=== PATIENT | female | born 1945 | race Caucasian/White ===

== ENCOUNTER 2016-10-16 09:46 | Inpatient (IN) | payer OTHER, MEDICARE ==
[2016-10-16] MEDS ORDERED: NS 1,000 ML IV ONE (10:04)
--- NOTE | 2016-10-16 10:08 | EDPHY ---
H & P Stated Complaint: Swelling L side of face > 2wks after dental procedure HPI/ROS: CHIEF COMPLAINT: Left facial swelling and pain HISTORY OF PRESENT ILLNESS: dental procedure on September 28 on the left lower molar for a temporary crown. Since then she has had increasing swelling on the left side of the face. Mild at 1st but now severe. It has steadily worsened without any improvement. Moderately tender 1st but severely tender last night. So tender that she took a pain medication from 8 years ago her previous injury this morning that has dulled the pain somewhat. Worse with any kind of palpation, movement, talking or attempted intake by mouth. Too painful to actually eat. No improvement with anything she has tried other than the mild pain relief as listed above. No fever or chills. No nausea or vomiting. No chest pain or shortness of breath. No abdominal pain. No urinary complaints. No changes of the skin, nails. No trauma. No other associated complaints or modifying factors. REVIEW OF SYSTEMS: Ten systems reviewed and are negative unless otherwise noted in the HPI EXAMINATION General Appearance: Alert, no distress Head: normocephalic, atraumatic, skin changes as noted below. Eyes: Pupils equal and round, no conjunctival pallor or injection ENT, Mouth: Mucous membranes moist . There is significant edema and moderate erythema over the left side of the face/parotid gland. It moderately tender to palpation. Indurated but not fluctuant. Neck: Significant edema of the lower face and upper neck. There is no edema below the mandible. No erythema below the mandible. There are palpable cervical lymphadenopathy Respiratory: Lungs are clear to auscultation. No wheezing, rhonchi or crackles. Cardiovascular: Regular rate and rhythm . No murmur. Gastrointestinal: Abdomen is soft and nontender Back: non-tender, no bony abnormalities Neurological: A&O, nonfocal, Strength symmetric. Skin: Skin changes as noted ENT section. Skin is otherwise grossly intact without any lesions. No purpura or petechiae. No abnormal appearance of nails or palm of his hands Extremities: Nontender, no pedal edema Psychiatric: Mood and affect normal DIFFERENTIAL DIAGNOSES: Including but not limited to Parotid abscess, parotitis, facial cellulitis, facial abscess, post surgical complication MDM: 10:00 a.m. significant left-sided facial swelling and edema that is concerning for a parotid abscess or parotitis. there is significant edema on examination with some erythema. She is hemodynamically stable with vital signs that were completely normal. She is in no acute distress. Labs and CT scan have been ordered. 11:[address] scan reveals a significant left-sided abscess. The official radiology report is pending, though he will take oral maxillofacial surgery for their assistance. We have administered clindamycin and vancomycin and she has remained NPO here in the emergency department. 11:01 a.m. case discussed with Dr. Jones in Radiology. He informed me that there is a significant, 8 cm abscess. This does track to the parotid, the commissioner of relocation services space , parapharyngeal space and up to the skull base. I informed him that we have already called maxillofacial surgery and we will also consult Ear Nose and Throat to discuss the best plan of surgical action for the patient. She remains awake and alert in no acute distress. Her airway is patent. She is hemodynamically stable. I did verify that her last p.o. intake was 8:20 a.m. when she had a smoothie for breakfast 11:30 a.m. I have discussed the case with Dr. Cardona, and she will evaluate the patient. She will put her on the surgery schedule and will evaluate the CT scan. She was requesting that we admit to the hospitalist and keep her here in the ER until she can come evaluate the patient. hospitalist has been paged. 11:39 a.m. discussed the case with the hospitalist, and she will be admitted to Dr. Hernández for inpatient care. 12:00pm Patient has been evaluated in the emergency department by maxillofacial surgery, as they were consulted by ENT. The plan is for surgical intervention and she has been admitted to the hospitalist for ongoing care. The patient is hemodynamically stable, she has begun her preoperative workup. SUPERVISION: Patient was evaluated in conjunction with the supervising physician. Please see their note for details. Source: Patient Exam Limitations: No limitations - Personal History Current Tetanus Diphtheria and Acellular Pertussis (TDAP): Unsure - Medical/Surgical History Other PMH: neg - Social History Smoking Status: Never smoked Constitutional: Initial Vital Signs Temperature (C) 98.1 F 10/16/16 09:47 Heart Rate 67 10/16/16 09:47 Respiratory Rate 16 10/16/16 09:47 Blood Pressure 111/76 10/16/16 09:47 O2 Sat (%) 97 10/16/16 09:47 O2 Delivery Mode Room Air Allergies/Adverse Reactions: Penicillins Allergy (Mild, Verified 10/16/16 09:51) Rash Home Medications: Medication Instructions Recorded NK [No Known Home Meds] 10/16/16 Medical Decision Making - Data Points Laboratory Results: Laboratory Results 10/16/16 10:06 10/16/16 10:06 10/16/16 10/16/16 10:06 10:04 WBC 15.48 H 10^3/uL (3.80-9.50) RBC 3.98 L 10^6/uL (4.18-5.33) Hgb 13.0 g/dL (12.6-16.3) POC Hgb 13.3 gm/dL (12.3-15.9) Hct 38.0 % (38.0-47.0) POC Hct 39 % (35.5-47.5) MCV 95.5 fL (81.5-99.8) MCH 32.7 pg (27.9-34.1) MCHC 34.2 g/dL (32.4-36.7) RDW 12.1 % (11.5-15.2) Plt Count 397 10^3/uL (150-400) MPV 8.4 L fL (8.7-11.7) Neut % (Auto) 89.2 H % (39.3-74.2) Lymph % (Auto) 2.5 L % (15.0-45.0) [place] % (Auto) 7.2 % (4.5-13.0) Eos % (Auto) 0.1 L % (0.6-7.6) Baso % (Auto) 0.3 % (0.3-1.7) Nucleat RBC Rel Count 0.0 % (0.0-0.2) Absolute Neuts (auto) 13.81 H 10^3/uL (1.70-6.50) Absolute Lymphs (auto) 0.39 L 10^3/uL (1.00-3.00) Absolute Monos (auto) 1.12 H 10^3/uL (0.30-0.80) Absolute Eos (auto) 0.01 L 10^3/uL (0.03-0.40) Absolute Basos (auto) 0.04 10^3/uL (0.02-0.10) Absolute Nucleated RBC 0.00 10^3/uL (0-0.01) Immature Gran % 0.7 % (0.0-1.1) Immature Gran # 0.11 H 10^3/uL (0.00-0.10) ESR 43 H MM/HR (0-30) POC Sodium 134 mEq/L (134-144) Sodium 135 mEq/L (134-144) POC Potassium 3.5 mEq/L (3.3-5.0) Potassium 3.9 mEq/L (3.5-5.2) POC Chloride 94 L mEq/L (96-108) Chloride 97 mEq/L (97-110) Carbon Dioxide 27 mEq/l (22-31) Anion Gap 11 mEq/L (8-16) POC BUN 3 L mg/dL (7-23) BUN 6 L mg/dL (7-23) Creatinine 0.6 mg/dL (0.6-1.0) POC Creatinine 0.6 mg/dL (0.6-1.2) Estimated GFR > 60 Glucose 103 H mg/dL (70-100) POC Glucose 110 H mg/dL (70-100) Calcium 8.7 mg/dL (8.5-10.4) C-Reactive Protein 208.7 H mg/L (<10.0) Medications Given: Discontinued Medications Sodium Chloride (Ns) 1,000 mls @ 0 mls/hr IV ONCE ONE PRN Reason: Wide Open Stop: 10/16/16 10:05 Last Admin: 10/16/16 10:18 Dose: 1,000 mls Clindamycin Phosphate/Dextrose (Cleocin 600 Mg (Premix)) 50 mls @ 100 mls/hr IV EDNOW ONE PRN Reason: Protocol Stop: 10/16/16 11:06 Last Admin: 10/16/16 10:49 Dose: 50 mls Point of Care Test Results: 10/16/16 10:04 POC Sodium 134 POC Potassium 3.5 POC Chloride 94 L POC BUN 3 L POC Creatinine 0.6 POC Glucose 110 H Departure - Departure Disposition: [facility] Acute Clinical Impression: Facial cellulitis, Facial abscess Condition: Good
[2016-10-16 10:16] LABS: % IMMATURE GRANULYOCYTES 0.7 % (0.0-1.1); ABSOLUTE IMMATURE GRANULOCYTES 0.11 10^3/uL (0.00-0.10); ADD DIFF? NO; ADD MORPH? NO; ADD SCAN? NO; ATYPICAL LYMPHOCYTE FLAG 10 (0-99); FRAGMENT RBC FLAG 0 (0-99); LEFT SHIFT FLG 10 (0-99); LIPEMIA HEMOLYSIS FLAG 90 (0-99); MEAN CELL HEMOGLOBIN 32.7 pg (27.9-34.1); MEAN CELL HEMOGLOBIN CONCENTR. 34.2 g/dL (32.4-36.7); MEAN CELL VOLUME 95.5 fL (81.5-99.8); MEAN PLATELET VOLUME 8.4 fL (8.7-11.7); PLATELET CLUMPS FLAG 0 (0-99); PLATELET COUNT 397 10^3/uL (150-400); RED BLOOD CELL COUNT 3.98 10^6/uL (4.18-5.33); RED CELL DISTRIBUTION WIDTH 12.1 % (11.5-15.2)
[2016-10-16] MEDS ORDERED: IOPAMIDOL (ISOVUE-300) 100 ML BTL IV ONE (10:18)
[2016-10-16 10:30] LABS: SEDIMENTATION RATE 43 MM/HR (0-30)
[2016-10-16] MEDS ORDERED: CLINDAMYCIN 600 MG/DEXTROSE 50 ML IV ONE (10:37)
[2016-10-16 10:45] LABS: ANION GAP 11 mEq/L (8-16); CALCIUM 8.7 mg/dL (8.5-10.4); CARBON DIOXIDE 27 mEq/l (22-31); CHLORIDE 97 mEq/L (97-110); CREATININE 0.6 mg/dL (0.6-1.0); GLOMERULAR FILTRATION RATE > 60; GLUCOSE 103 mg/dL (70-100); POTASSIUM 3.9 mEq/L (3.5-5.2); SODIUM 135 mEq/L (134-144)
[2016-10-16] MEDS ORDERED: VANCOMYCIN HCL/NORMAL SALINE 250 ML IV ONE (10:55)
[2016-10-16 11:06] LABS: C-REACTIVE PROTEIN 208.7 mg/L (<10.0)
--- NOTE | 2016-10-16 11:07 | CPEKG ---
Heart Rate: 70 RR Interval: 857 P-R Interval: 131 QRSD Interval: 94 QT Interval: 412 QTC Interval: 445 P [place]: 0 QRS [place]: 39 T Wave [place]: 39 EKG Severity - NORMAL ECG - EKG Impression: SINUS RHYTHM Electronically Signed By: Tl Glasgow 16-Oct-2016 14:31:23
--- NOTE | 2016-10-16 11:30 | CT ---
CT Scan of the Neck With Contrast Clinical Indications: Prominent left neck swelling in a 70-year-old female who is status post 2 weeks dental procedure. Technique: During machine power IV injection of 90 mL of Isovue-300, multidetector helical CT imaging was performed from the skull base to the upper thoracic inlet. Axial images are obtained at 3 mm int ervals and reformatted at 1.5 mm thickness. The examination is reviewed on the workstation at multipl e window/level settings. Sagittal and coronal reformations are performed. Dose reduction techniques were utilized for this examination. Findings: There is extensive abscess formation in the left neck. Complex, multiloculated fluid extend s from the skull base caudally for 9 cm. The abscess measures 8.5 cm transverse. The soft tissue mass involves the reliability technicians space as well as left parapharyngeal space. The abscess engulfs the mandible and involves the left parotid. Mass effect from the abscess compresses the left internal jugular vei n. The left carotid is mildly displaced. No osseous erosive changes are seen. No significant opacific ation of the paranasal sinuses is noted. There is also enlargement as well as heterogeneous attenuati on of the left submandibular gland. The medial extent of the abscess results in mass effect on the ai rway. Impression: 1. 9 x 8.5 cm multiloculated abscess in the left neck extending cephalad to the skull base with an ep icenter around the left mandibular ramus. 2. See above report for abnormal findings associated with the large neck abscess. A preliminary report was called to Benjamin Shell at 1115 hours in the Emergency Department.
--- NOTE | 2016-10-16 11:40 | DX ---
PA and Lateral Chest History: Preoperative evaluation in a 70-year-old female with a left neck abscess. No previous studie s available for comparison. Findings: The heart and mediastinum are normal. Pulmonary vascularity is normal. The lungs are clear. There is no pleural fluid. There is elevation of the left hemidiaphragm associated with gaseous dist ention of the stomach. A pneumothorax is not identified. Impression: Chest negative for acute abnormality.
[2016-10-16] MEDS ORDERED: DEXAMETHASONE 10 MG/ML VIAL IVP ONE (11:58)
[2016-10-16] MEDS ORDERED: fentaNYL 100 MCG/2 ML INJ ONE (13:34)
[2016-10-16] MEDS ORDERED: PROPOFOL/EMULSION 500 MG/50 ML BOTTLE IV ONE (13:35)
[2016-10-16] MEDS ORDERED: LIDO/EPI 1% **Not for Epidural 20 ML MDV ONE (13:37)
[2016-10-16] MEDS ORDERED: MIDAZOLAM 2 MG/2 ML VIAL ONE (14:10)
--- NOTE | 2016-10-16 15:55 | POSTOPPROG ---
Post Op Note Date of Operation: 10/16/16 Surgeon: Juliana Cardona Anesthesiologist: kelsey melendez md Anesthesia: GET(General Endotracheal) Pre-op Diagnosis: L dental abscess extending into rougher helper space/PPF/neck Post-op Diagnosis: same Procedure: I&D L neck abscess via external and intraoral approach Findings: 100 cc purulence fluid expressed, cultures taken Inf/Abcess present in the surg proc area at time of surgery?: Yes Depth: Deep Incisional (Fascial) EBL: Minimal Complications: none apparent Drains: [place] (2 enmanuel L neck)
[2016-10-16] MEDS ORDERED: ACETAMINOPHEN 325 MG TAB PO PRN (16:38)
[2016-10-16] MEDS ORDERED: HYDROmorphONE/DILAUDID 1 MG/ML SYR IVP PRN (16:38)
[2016-10-16] MEDS ORDERED: ONDANSETRON DISINTEGRATING 4 MG TAB PO PRN (16:38)
[2016-10-16] MEDS ORDERED: ONDANSETRON 4 MG/2 ML VIAL IVP PRN (16:38)
[2016-10-16] MEDS ORDERED: NS 1,000 ML IV SCH (16:45)
--- NOTE | 2016-10-16 16:53 | GCON ---
[f rep st] CONSULTATION CHIEF COMPLAINT: Neck abscess. HISTORY OF PRESENT ILLNESS: This is a very pleasant 70-year-old woman, who presented to the ER with a 2-week history of progressive left neck and face swelling and pain. She had a dental procedure done on September 28 for a left lower molar and got a temporary crown. Since then, starting about 5 days after that procedure, she has had increasing swelling on the left side of the face and around her jaw. This was minimal at first, but now it has gotten severe and has steadily worsened. It became acutely more tender last night and increasing tension. She denies any dysphagia, odynophagia, or shortness of breath. She does have difficulty opening her mouth. She does state that she has been back to her dentist a couple times and nothing was really done until yesterday, she was given clindamycin. She has been having significant pain and has not been able to eat very much secondary to worsening pain and trismus. Denies any fever or chills. No nausea or vomiting. She denies chest pain or shortness of breath. She has no other trauma and no other significant past medical history. REVIEW OF SYSTEMS: Negative, unless otherwise noted in the HPI. PAST MEDICAL HISTORY: Negative for any significant past medical history. MEDICATIONS: She is on no current medications. PHYSICAL EXAM: GENERAL: She is awake, alert, in no apparent distress. HEENT: She does have marked swelling over the left side of the cheek, face and jaw. I am not able to feel the angle of her mandible. She does have fluctuance overlying where this would be, as well as a lot of induration, as well as redness this extends down over the left neck and into the upper chest. Ears are normal with TMs that are intact and middle ear effusion. Nose shows some dry secretions, but otherwise clear. Oral cavity and oropharynx show overall good dentition. She does have trismus with about a 2-3 cm interincisor distance. She has significant swelling of the buccal region intraorally, as well as some kind of purulent fluid and secretions around this area. It is difficult to see her oropharynx secondary to her trismus. She has no floor of mouth swelling, and tongue is mobile and midline. NECK: Shows induration over the left side of the jaw extending into the upper part of the neck but otherwise, I do not find any other masses or lesions. RESPIRATORY: She is breathing comfortably, stridor or wheezing, and sats are in the upper 90s. CARDIOVASCULAR: Regular rate and rhythm. NEUROLOGIC: Cranial nerves 2-12 are grossly intact. PSYCHIATRIC: She has a normal mood and affect. IMAGING: Shows a significant 8 x 9 cm abscess, seemingly starting around the angle of the mandible and extending into the line up examiner space, parapharyngeal space and up to the skull base. LABS: White count is 15, H and H are normal, and platelets are 397. ASSESSMENT AND PLAN: This is a patient with a left-sided mandibular dental abscess that looks like it has extended into the line up examiner space, as well as the pterygoid palatine fossa and then into the neck, the surrounding the parotid. It also extends up to the skull base. I discussed with her that she needs a fairly acute incision and drainage. I also talked to her about potential need for awake tracheostomy if Anesthesia feels that it is unsafe to try to intubate her. I did explain that we will do an intraoral and an external incision. She understands that there is a small risk of nerve injury, vessel injury, or continued infection and need for return to the OR at a later date. I talked to the radiologist, as well as the Infectious Disease physicians, who will be admitting her and following as well and otherwise, have alerted OR. /[id number]/MODL MTDD
--- NOTE | 2016-10-16 17:02 | GOP ---
[f rep st] OPERATIVE REPORT DATE OF OPERATION: 10/16/2016 SURGEON: Juliana Cardona MD ANESTHESIA: General. PREOPERATIVE DIAGNOSIS: Left likely dental abscess source extending into the clerical stock inspector space, parap haryngeal space and neck. POSTOPERATIVE DIAGNOSIS: Left likely dental abscess source extending into the clerical stock inspector space, para pharyngeal space and neck. PROCEDURE PERFORMED: Incision and drainage of left facial and dental abscess via an external and int raoral incision. FINDINGS: Patient was found significant loculations and about 100 cc of pus was expressed out of thi s abscess cavity. It was irrigated out copiously with normal saline intraorally and extraorally, and no significant purulence was found. DESCRIPTION OF PROCEDURE: The patient was first seen in the preoperative area, where informed consen t was obtained. She was then brought back to the operating room, where Anesthesia sedated and intuba rosetta her via the GlideScope. At this point, she was then prepped and draped in a sterile fashion usin g Betadine on the neck and face, and then Peridex within the oral cavity. She did have significant trismus, and we initially started our procedure by making an incision just a bout 2 fingerbreadths below the angle of the mandible. This was the area of maximal fluctuance. Abo ut a 2 to 2.5 cm incision was made using a 15 blade through the skin, subcutaneous tissues after abou t 4 cc of 1% lidocaine with 1:100,000 epinephrine was injected into this region. I then gently sprea d with a tonsil clamp through the multiple layers of tissue until the capsule of the abscess cavity w as found. This was significantly thick. The electrocautery was used to just gently thin this area o ut and the tonsil was used to break through this, and then we had immediate expression of significant purulent fluid mixed with blood. Two cultures were taken and sent off for aerobic and anaerobic cul ture. The tonsil was used to probe around the down to the angle of the mandible and then up along the super ior aspect of the mandible. We also probed more inferiorly, as well as laterally and got significant amounts of purulence from all these regions. This was irrigated out copiously with normal saline an d cleared out. At this point, I then turned my attention to the intraoral area. Peridex was used again to irrigate this out, and then her teeth were cleaned using the Peridex and a toothbrush. Once this was done, th is was suctioned clear and then I palpated in the buccal cavity, as well as the palate. She had sign ificant swelling of the buccal region, as well as this extended into the soft palate to the midline. I was able to palpate these areas and express significant amounts of more purulence through the exte rnal incision, indicating that these were contiguous. She did still have some fluctuance and concern for continued abscess in these regions and so I then placed a [place] retractor, as well as use a swe etheart retractor to retract the tongue and the ET tube, and then a small incision was used with the electrocautery in the retromolar trigone area just over the anterior surface of the mandible. Once t his was done, I then used the probe, as well as my finger to break up any loculations and express any more purulence. A significant amount of saline was used to irrigate this out copiously and then once I was confident that all the purulence had been expressed and all the loculations were clear, the wo und was irrigated out copiously with saline, cleared, and then our intraoral incision was left open. I then turned back to the extraoral incision. Again, irrigated out this copiously with normal saline , cleared the cavity, and then 2 quarter-inch Penroses were placed within the cavity and sutured to t he skin using a 3-0 nylon. At this point, the area was cleaned, and then 4x4s and gauze and tape wer e used to cover the drains. At this point, the patient was turned back over to Anesthesia, where she was awoken and extubated, an d taken to PACU in stable condition. There were no complications and she tolerated the procedure. COMPLICATIONS: None apparent. /[id number]/MODL
--- NOTE | 2016-10-16 17:18 | GHP ---
[f rep st] HISTORY AND PHYSICAL DATE OF ADMISSION: 10/16/2016 CHIEF COMPLAINT: Left facial swelling and pain. HISTORY OF PRESENT ILLNESS: The patient is a 70-year-old female who has no significant past medical history, who presented to the emergency room with left facial swelling and pain. She had a dental procedure on September 28 on the left lower molar area. Since then, she has had increased swelling. During my interview, she said the pain was never too severe, but became severely tender last night. She was unable to eat. She came to the ER for further evaluation. She had a CT scan performed. This showed a 9 x 8.5 cm multiloculated abscess in the left neck area, extending cephalad to the skull base, with an epicenter around the left mandibular ramus. She subsequently went to the OR with Dr. Cardona, and had an I and D of the left neck abscess via external and intraoral approach. At that time, 100 cc of purulent fluid was expressed. Cultures were taken. I evaluated the patient after the procedure. She was quite sedate, but was able to answer my questions. She denies any fever or chills. She denies any type of chest pain or shortness of breath. Her main complaint that brought her in was the left facial swelling and pain. PAST MEDICAL HISTORY: None. PAST SURGICAL HISTORY: Appendectomy. FAMILY HISTORY: Her parents are . Her mom had dementia. Her father of complications of old age. SOCIAL HISTORY: She has been for 23 years. She has no children. She does not smoke. She rarely drinks alcohol. ALLERGIES: Penicillin. MEDICATIONS: Home medications none. REVIEW OF SYSTEMS: A 10-point review of systems was performed and was negative other than pertinent positives in the HPI and past medical history. PHYSICAL EXAMINATION: GENERAL: The patient is a 70-year-old woman who appears to be in overall good health. VITAL SIGNS: Blood pressure in PACU was 110/69, heart rate was in the low 90s. O2 sats on 2 L were 93%, temperature was 36.8 Celsius. EYES: Pupils were equal and reactive. EOMs are intact. ENT: Normal ears, hearing intact. NECK: Trachea is midline. She has significant swelling to the left neck area and along the left jaw area. She has [address] with bloody drainage coming through the dressings. CARDIOVASCULAR: She has a regular rate and rhythm. No murmurs, rubs, or gallops noted, 2+ pedal pulses. CHEST: Lungs with normal respiratory effort. Clear without wheezes, rales, or rhonchi. She has a dry cough. ABDOMEN: Soft, nontender. SKIN: No rashes. MUSCULOSKELETAL: Not evaluated. She is moving both upper and lower extremities equally. PSYCHIATRIC: She is very drowsy, but awakens easily and is oriented. Normal mood and affect. Normal judgment, insight, and normal memory. DATA REVIEW: Laboratory data shows a sodium of 135, potassium 3.9, chloride of 97, CO2 of 27, BUN 6, creatinine 0.6, glucose of 103, calcium 8.7. C reactive 208.7. A CBC shows a white blood cell count of 15.48, RBC of 3.98, platelet count 397. Sedimentation rate is 43. EKG was performed, which I evaluated and interpreted myself, which shows a sinus rhythm. Neck CT shows a 9 x 8.5 cm multiloculated abscess in the left neck, extending cephalad to the skull base with an epicenter around the left mandibular ramus. ASSESSMENT/PLAN: 1. Left facial/dental abscess extending into the heel painter space. She is status post I and D of the left neck. I have spoken with Dr. Jones, and the plan is to place her on ertapenem. She also has a Inman in place to help with this drainage. Blood cultures are currently pending as well as Gram stains and fungal cultures are pending. 2. Leukocytosis. This is due to the infection. Will recheck labs in the morning. She does not appear to be septic at this time. 3. Hyperglycemia, likely stress-induced. Recheck labs in the morning. 4. Deep venous thrombosis prophylaxis. Will initiate low molecular weight heparin in the a.m. 5. Length of stay. She will likely require greater than 2 midnight stay for IV antibiotics. /[id number]/MODL MTDD
[2016-10-16] MEDS: ERTAPENEM 1 GM in NS 100 ML IV SCH (17:30)
[2016-10-16] MEDS: IBUPROFEN 200 MG TAB PO PRN (20:17)
--- NOTE | 2016-10-16 21:44 | GCON ---
[f rep st] CONSULTATION INFECTION DISEASE CONSULTATION DATE OF CONSULTATION: 10/16/2016 REFERRING PHYSICIAN: Rosalba Nelson NP REASON FOR CONSULTATION: Left mandibular abscess. HISTORY OF PRESENT ILLNESS: Patient is a 70-year-old female without significant past medical history who underwent temporary crown placement on a left lower molar approximately 3 weeks ago. Approximat catina 2 weeks ago, she developed increased swelling over the left mandibular region with some associate d tenderness. She had associated trismus. She notes she has primarily been taking in liquid intake rather than eating usual foods. She has not had fever or chills. She has not been receiving any ant ibiotic therapy. She has been undergoing regular follow up with her dentist. Over the last several days, she developed erythema over the area which spread to the anterior chest. The area of erythema was warm and firm over the jaw line. She has been taking ibuprofen which has not relieved her sympto ms. No nausea, vomiting, or diarrhea. No urinary symptoms. She does have some intermittent cough. No shortness of breath. Based on those findings, she was seen in the emergency room earlier today a nd noted to have a large left-sided mandibular abscess. CT scan shows a 9 x 8.5 cm multiloculated ab scess in the left neck/jaw with its central area around the left mandible. There is compression of t he left internal jugular vein, and there is some mass effect on her airway. She notes that her voice has been more hoarse, but she has not noted any stridor. The patient was given vancomycin and clind amycin empirically in the emergency department as she has prior penicillin allergy. Given the above findings, I am now asked to assist with her ongoing management. PAST MEDICAL HISTORY: Traumatic pelvic fracture. PAST SURGICAL HISTORY: Breast biopsy. MEDICATIONS: Prior to admission, as needed ibuprofen. ALLERGIES: Penicillin associated with rash over the chest; no hives were anaphylactic symptoms. SOCIAL HISTORY: The patient does not smoke. She drinks 1 glass of wine daily. No drug use. No pet s at home. FAMILY HISTORY: Noncontributory. REVIEW OF SYSTEMS: Outside that noted in the HPI, the remainder of 10 system review is unremarkable. PHYSICAL EXAMINATION: VITAL SIGNS: Temperature 36.7, heart rate 77, respiratory rate 16, blood pres sure 121/87, oxygen saturation 96% on room air. GENERAL: The patient is well-nourished, well-develo ped, in mild distress due to left mandibular abscess. She appears nontoxic. HEENT: There are no sc leral icterus, conjunctival injection, conjunctiva petechiae. The left jaw is extremely swollen with induration and fluctuance present with overlying erythema and warmth; no crepitus present; erythema extends from the jaw/face through the left side of the neck and onto the anterior chest. There is th ick white material along the lower portion of the mandibular region intraorally; trismus is present; there is no nasal tenderness or drainage. There is no tenderness over the frontal sinuses bilaterall y. NECK: See HEENT exam; there is erythema anteriorly with tenderness to palpation. CHEST: Clear to auscultation bilaterally without adventitious sounds. Respiratory is normal. Erythema extends on the left chest wall to approximately the bra line with warmth present. CARDIOVASCULAR: Regular rat e and rhythm without murmurs, gallops, rubs. ABDOMEN: Soft, nontender, nondistended. There is no p alpable organomegaly. Bowel sounds are present. MUSCULOSKELETAL: There is no cyanosis, clubbing, o r edema. SKIN: See HEENT, neck and chest exam; there are no stigmata of endocarditis. Skin is warm , dry to touch. LYMPHATICS: Difficult to assess for cervical adenopathy based on anterior neck tend erness. No supraclavicular nodes palpable. NEUROLOGIC: The patient is alert and interacts appropri ately with the examiner. Cranial nerves 2-12 are grossly intact. Sensation is grossly intact. Musc le tone and bulk are normal. LABORATORY DATA: White blood cell count 15.5, hematocrit 38.0, platelets 397, neutrophils 89%. Seru m creatinine is 0.6. C-reactive protein 209. CT scan of the neck as outlined in the History of Pres ent Illness; this was reviewed and interpreted by me today. Chest x-ray shows no abnormalities. IMPRESSION: Left mandibular/neck abscess, status post dental work: Clinical findings are consistent with a large multiloculated abscess of odontogenic etiology. Oral nestor likely etiology for above f indings. Incision and drainage will be required for resolution of above. Plans for incision and alber inage are in place by Ear, Nose, and Throat surgery. RECOMMENDATIONS: 1. Ertapenem 1 g IV q.24 hours. 2. Agree with plans for incision and drainage. 3. Blood cultures x2 sets. 4. Intraoperative cultures to assist with antibiotic therapy. Thank you for this consultation. We will continue to follow the patient with you. /[id number]/MODL
[2016-10-17 06:15] LABS: % IMMATURE GRANULYOCYTES 0.6 % (0.0-1.1); ABSOLUTE IMMATURE GRANULOCYTES 0.07 10^3/uL (0.00-0.10); ADD DIFF? NO; ADD MORPH? NO; ADD SCAN? NO; ATYPICAL LYMPHOCYTE FLAG 10 (0-99); FRAGMENT RBC FLAG 0 (0-99); HEMATOCRIT 30.8 % (38.0-47.0); HEMOGLOBIN 10.3 g/dL (12.6-16.3); LEFT SHIFT FLG 0 (0-99); LIPEMIA HEMOLYSIS FLAG 80 (0-99); MEAN CELL HEMOGLOBIN CONCENTR. 33.4 g/dL (32.4-36.7); MEAN CELL VOLUME 98.7 fL (81.5-99.8); MEAN PLATELET VOLUME 8.7 fL (8.7-11.7); PLATELET CLUMPS FLAG 0 (0-99); PLATELET COUNT 359 10^3/uL (150-400); RED BLOOD CELL COUNT 3.12 10^6/uL (4.18-5.33); RED CELL DISTRIBUTION WIDTH 12.5 % (11.5-15.2)
[2016-10-17 06:38] LABS: ALANINE AMINOTRANSFERASE 37 IU/L (9-52); ALBUMIN 2.4 g/dL (3.5-5.0); ALKALINE PHOSPHATASE 116 IU/L (38-126); ANION GAP 11 mEq/L (8-16); ASPARTATE AMINOTRANSFERASE 20 IU/L (14-46); BILIRUBIN,TOTAL 0.4 mg/dL (0.1-1.4); CALCIUM 7.8 mg/dL (8.5-10.4); CARBON DIOXIDE 22 mEq/l (22-31); CHLORIDE 106 mEq/L (97-110); CREATININE 0.5 mg/dL (0.6-1.0); GLOMERULAR FILTRATION RATE > 60; GLUCOSE 85 mg/dL (70-100); POTASSIUM 4.3 mEq/L (3.5-5.2); SODIUM 139 mEq/L (134-144)
[2016-10-17] MEDS: ENOXAPARIN 40 MG/0.4 ML SYR SC SCH (08:03)
[2016-10-17] MEDS: ERTAPENEM 1 GM in NS 100 ML IV SCH (08:03)
--- NOTE | 2016-10-17 08:32 | SOAPPROG ---
SOAP Progress Note Assessment/Plan: Assessment/Plan: POD 1 I&D large dental/ facial abscess. Doing well, feels sig better. Still with trismus but improved. Able to express some thick d/c from penroses though not sig. Needs to stay on CLD for now. Continue IV abx per ID. Could need another washout though for now looks sig better. Will continue to follow and if deteriorates clinically will go from there. Start peridex mouthrinses 10/17/16 08:21 Subjective: Pt doing well, feels much better. Opening mouth wider, pain sig improved. Changed dressing x 1 last night. Objective: AAOx3 AFVSS RA Dressing removed over L face. penroses intact, able to express some thick d/c still TTP though less so, less erythema and induration OC/OP without sig swelling of FOM and improved fullness of L buccal and palate region Incision open at RMT L Vital Signs Temp Pulse Resp BP Pulse Ox 36.8 C 69 14 92/72 L 89 L 10/17/16 08:00 10/17/16 08:00 10/17/16 08:00 10/17/16 08:00 10/17/16 08:00 Microbiology 10/16/16 15:00 Gram Stain - Final Neck - Eswab 10/16/16 15:00 Gram Stain - Final Neck - Eswab 10/16/16 15:00 Mycobacterial Smear (DIMA) - Final Neck - Eswab Mycobacterial Culture - Final 10/16/16 15:00 Mycobacterial Smear (DIMA) - Final Unspecified Mycobacterial Culture - Final Laboratory Results 10/17/16 04:29 10/17/16 04:29 10/16/16 10/17/16 10/18/16 05:59 05:59 05:59 Intake Total 3055 Output Total 21 Balance 6184 ICD10 Worksheet Patient Problems: Problems Problem Status Diagnosed Facial abscess Acute Facial cellulitis Acute
[2016-10-17] MEDS: CHLORHEXIDINE GLUCONATE 15 ML UDL PO SCH ×3 (10:37→21:35)
[2016-10-17] MEDS: IBUPROFEN 200 MG TAB PO PRN ×2 (11:17→21:32)
--- NOTE | 2016-10-17 12:08 | PCMIDPN ---
Assessment/Plan: Assessment/Plan: 1. Left odontogenic infection with extension with cis coordinator and neck abscess: - s/p I & D . appreciate ENt -Cx in progress: Gram stain with GPC in chains, GNR,....cx pending - Currently on invanz for broad coverage. -wbc improving.pain improved overall -blood cx pending -Pt updated on results, plan of care meds invanz 1g daily- 10/16/16 Subjective: Afebrile. Less pain compared to yesterday. enmanuel drain noted with bloody purulent material on dressing. Denies shortness of breath. Has cough with some phlegm. denies pain or trouble swallowing. pain involving left cheek, left neck and mouth. denies diarrhea. Objective: Vital Signs Temp Pulse Resp BP Pulse Ox 36.8 C 69 14 92/72 L 89 L 10/17/16 08:00 10/17/16 08:00 10/17/16 08:00 10/17/16 08:00 10/17/16 08:00 Microbiology 10/16/16 15:00 Gram Stain - Final Neck - Eswab 10/16/16 15:00 Gram Stain - Final Neck - Eswab 10/16/16 15:00 Mycobacterial Smear (DIMA) - Final Neck - Eswab Mycobacterial Culture - Final 10/16/16 15:00 Mycobacterial Smear (DIMA) - Final Unspecified Mycobacterial Culture - Final Laboratory Results 10/17/16 04:29 10/17/16 04:29 10/16/16 10/17/16 10/18/16 05:59 05:59 05:59 Intake Total 6205 200 Output Total 21 1000 Balance 6184 -800 ESR 43 MM/HR (0-30) H 10/16/16 10:06 C-Reactive Protein 208.7 mg/L (<10.0) H 10/16/16 10:06 - Physical Exam General Appearance: alert, no apparent distress EENT: other (swelling extending up into left cheek. mild tenderness) Respiratory: lungs clear Neck: other (swelling involvig left neck with induration, mild erythema, enmanuel drain present with bloody purulent material. tender. ) Cardiac/Chest: regular rate, rhythm Abdomen: normal bowel sounds, non-tender, soft, No distended Skin: other (see above.) ICD10 Worksheet Patient Problems: Problems Problem Status Diagnosed Facial abscess Acute Facial cellulitis Acute
[2016-10-17] MEDS ORDERED: HYDROCODONE/APAP 5/325 TAB PO PRN (13:52)
[2016-10-17] MEDS ORDERED: oxyCODONE IR 5 MG TAB PO PRN (13:52)
--- NOTE | 2016-10-17 13:58 | HOSPPROG ---
Hospitalist Progress Note Assessment/Plan: 70-year-old woman admitted with large facial abscess stemming from a recent dental procedure. She underwent I&D by ENT yesterday and is feeling much improved today. Appreciate ID input she is currently on Invanz daily, ENT will continue to follow for further need for I and D # facial abscess status post I&D. * Await culture results to tailor antibiotics as needed * Follow closely for worsening status and need for further I and D. Appreciate ENT a follow-up Subjective: Patient new to me, chart reviewed feeling much better this morning with decreased swelling. Has some mild pain but otherwise doing much better Objective: Vital Signs Temp Pulse Resp BP Pulse Ox 36.9 C 75 12 119/71 91 L 10/17/16 12:00 10/17/16 12:00 10/17/16 12:00 10/17/16 12:00 10/17/16 12:00 Microbiology 10/16/16 15:00 Gram Stain - Final Neck - Eswab 10/16/16 15:00 Gram Stain - Final Neck - Eswab 10/16/16 15:00 Mycobacterial Smear (DIMA) - Final Neck - Eswab Mycobacterial Culture - Final 10/16/16 15:00 Mycobacterial Smear (DIMA) - Final Unspecified Mycobacterial Culture - Final Laboratory Results 10/17/16 04:29 10/17/16 04:29 10/16/16 10/17/16 10/18/16 05:59 05:59 05:59 Intake Total 6205 200 Output Total 21 1000 Balance 6184 -800 - Physical Exam Constitutional: no apparent distress Eyes: PERRL Ears, Nose, Mouth, Throat: moist mucous membranes, other (Swelling left side of cheek with the bandage in place) Cardiovascular: regular rate and rhythym, no murmur, rub, or gallop Respiratory: no respiratory distress, no rales or rhonchi, clear to auscultation Neurologic: AAOx3 Psychiatric: interacting appropriately ICD10 Worksheet Patient Problems: Problems Problem Status Diagnosed Facial abscess Acute Facial cellulitis Acute
[2016-10-18] MEDS: MELATONIN 3 MG TAB PO SCH ×2 (01:24→20:19)
[2016-10-18] MEDS: CHLORHEXIDINE GLUCONATE 15 ML UDL PO SCH ×3 (08:08→20:24)
[2016-10-18] MEDS: ERTAPENEM 1 GM in NS 100 ML IV SCH (08:08)
[2016-10-18] MEDS: ENOXAPARIN 40 MG/0.4 ML SYR SC SCH (08:08)
[2016-10-18] MEDS: IBUPROFEN 200 MG TAB PO PRN ×2 (08:22→20:19)
--- NOTE | 2016-10-18 09:06 | SOAPPROG ---
SOAP Progress Note Assessment/Plan: Assessment/Plan: POD 2 I&D large dental/ facial abscess. Doing well overall, removed one enmanuel with sig thick purulence able to be expressed. I think would be beneficial to do second washout to clear it better and confirm won't reaccumulate. NPO now. Will go sometime today. 10/17/16 08:21 10/18/16 09:04 Subjective: Doing well, feels good, still mild trismus but better. pain better. Drains still putting out quite a bit of seropurulent fluid. Objective: AAOx3 AFVSS RA Lateral enmanuel removed, able to express thick purulence redness improved OP sig less edema and inflammation, wound healing Vital Signs Temp Pulse Resp BP Pulse Ox 36.8 C 74 12 108/69 90 L 10/18/16 07:58 10/18/16 07:58 10/18/16 07:58 10/18/16 07:58 10/18/16 07:58 Microbiology 10/16/16 15:00 Gram Stain - Final Neck - Eswab 10/16/16 15:00 Gram Stain - Final Neck - Eswab Laboratory Results 10/17/16 04:29 10/17/16 04:29 10/17/16 10/18/16 10/19/16 05:59 05:59 05:59 Intake Total 2347 7430 Output Total 21 0114 1000 Balance 6184 -830 -1000 ICD10 Worksheet Patient Problems: Problems Problem Status Diagnosed Facial abscess Acute Facial cellulitis Acute
[2016-10-18] MEDS ORDERED: LIDO/EPI 1% **Not for Epidural 20 ML MDV ONE ×2 (09:39→15:54)
--- NOTE | 2016-10-18 14:09 | PCMIDPN ---
Assessment/Plan: Assessment: Left-sided submandibular abscess. Clearly from an odontologic source. Polymicrobial cultures with Haemophilus parainfluenza and Streptococcus intermedius. Patient is being managed on ertapenem monotherapy which will confer coverage to both of these organisms and other oral organisms which are not growing yet. Prefer to treat for at least 2 weeks with IV antibiotic status post drainage. Plan: 1. Continue ertapenem monotherapy. 2. Follow culture data and clinical course. 3. Patient will likely need a few more days of intravenous antibiotic treatment of before the surgical area is sufficiently decreased in size for discharge. Subjective: Patient is resting in her hospital bed. She states that the swelling on the left side of her jaw is much decreased from yesterday. No fevers or chills. Objective: Ertapenem # 3 Vital Signs Temp Pulse Resp BP Pulse Ox 36.8 C 74 12 108/69 90 L 10/18/16 07:58 10/18/16 07:58 10/18/16 07:58 10/18/16 07:58 10/18/16 07:58 Microbiology 10/16/16 15:00 Gram Stain - Final Neck - Eswab 10/16/16 15:00 Mycobacterial Smear (DIMA) - Final Unspecified Mycobacterial Culture - Final 10/16/16 15:00 Gram Stain - Final Neck - Eswab Laboratory Results 10/17/16 04:29 10/17/16 04:29 10/17/16 10/18/16 10/19/16 05:59 05:59 05:59 Intake Total 6205 1450 Output Total 21 2280 1000 Balance 6184 -830 -1000 ESR 43 MM/HR (0-30) H 10/16/16 10:06 C-Reactive Protein 208.7 mg/L (<10.0) H 10/16/16 10:06 - Physical Exam General Appearance: WD/WN, alert, no apparent distress, non-toxic EENT: other (Left-sided submandibular swelling. Meena drain in place. Seropurulent discharge into covering cause. Decreased surrounding erythema and edema.) Respiratory: lungs clear, normal breath sounds, No respiratory distress Cardiac/Chest: regular rate, rhythm, No tachycardia Skin: normal color, warm/dry, No rash Neuro/Psych: alert, normal mood/affect, oriented x 3 ICD10 Worksheet Patient Problems: Problems Problem Status Diagnosed Facial abscess Acute Facial cellulitis Acute
--- NOTE | 2016-10-18 15:44 | HOSPPROG ---
Hospitalist Progress Note Assessment/Plan: 70-year-old woman admitted with large facial abscess stemming from a recent dental procedure. She underwent I&D by ENT and is feeling much improved today. Appreciate ID input she is currently on Invanz daily, ENT will continue to follow for further need for I and D. This is my 1st encounter with the patient , chart reviewed. Patient discussed with Dr. Reed of Infectious Disease. # facial abscess status post I&D. * Await culture results to tailor antibiotics as needed * Follow closely for worsening status and need for further I and D. Appreciate ENT a follow-up # pain This is controlled currently # disposition Unclear given need for further intervention and evaluation in the hospital setting Will need continued antibiotic therapy Subjective: Feeling better today than yesterday. Pain is controlled controlled currently. Anxious about going home when discharged. Objective: Vital Signs Temp Pulse Resp BP Pulse Ox 36.8 C 76 16 120/78 94 10/18/16 14:15 10/18/16 14:15 10/18/16 14:15 10/18/16 14:15 10/18/16 14:15 Microbiology 10/16/16 15:00 Gram Stain - Final Neck - Eswab 10/16/16 15:00 Gram Stain - Final Neck - Eswab 10/16/16 15:00 Mycobacterial Smear (DIMA) - Final Unspecified Mycobacterial Culture - Final Laboratory Results 10/17/16 04:29 10/17/16 04:29 10/17/16 10/18/16 10/19/16 05:59 05:59 05:59 Intake Total 6205 1450 Output Total 21 1660 1600 Balance 1558 -200 -1600 - Physical Exam Constitutional: no apparent distress, appears nourished, uncomfortable Eyes: PERRL, anicteric sclera, EOMI Ears, Nose, Mouth, Throat: moist mucous membranes, hearing normal, ears appear normal, other (Swelling with incision) Cardiovascular: No JVD, No tachycardia, No edema Respiratory: no respiratory distress, no rales or rhonchi, reduced air movement Gastrointestinal: No tenderness, No ascites, No guarding Skin: warm, normal color, No erythema Musculoskeletal: normal joint ROM, no joint effusions, muscular tenderness Neurologic: AAOx3 Psychiatric: not anxious, not encephalopathic, thought process linear ICD10 Worksheet Patient Problems: Problems Problem Status Diagnosed Facial abscess Acute Facial cellulitis Acute
[2016-10-18] MEDS ORDERED: MIDAZOLAM 2 MG/2 ML VIAL ONE (15:57)
[2016-10-18] MEDS ORDERED: fentaNYL 100 MCG/2 ML INJ ONE (16:00)
[2016-10-18] MEDS ORDERED: ROCURONIUM 50 MG/5 ML VIAL ONE (16:00)
[2016-10-18] MEDS ORDERED: PROPOFOL 200 MG/20 ML VIAL ONE (16:00)
[2016-10-18] MEDS ORDERED: SUGAMMADEX SODIUM 200 MG/2 ML VIAL IVP ONE (16:40)
--- NOTE | 2016-10-18 17:35 | GOP ---
[f rep st] OPERATIVE REPORT DATE OF OPERATION: 10/18/2016 SURGEON: Juliana Cardona MD ANESTHESIA: General. PREOPERATIVE DIAGNOSIS: History of left dental and facial abscess. POSTOPERATIVE DIAGNOSIS: History of left dental and facial abscess. PROCEDURE PERFORMED: Repeat incision and drainage, and washout of left facial abscess. ESTIMATED BLOOD LOSS: Minimal. COMPLICATIONS: None. FINDINGS: Patient was found to have some purulent fluid that was expressed. She still has a very large pocket that was able to be probed and palpated, and any further loculations were broken up. The intraoral incision was evaluated and this was able to be probed open again, and the pocket was still felt. It was probed with a tonsil clamp and a small amount of purulence was cleared. Both incisions were then irrigated out copiously with normal saline and then suctioned clear, and completely removed. We then used a 1/4-inch Enmanuel and 2 of these were placed through the neck incision up around the mandible and then sutured into place using a 3-0 nylon to the skin. PROCEDURE: Pt was first seen in the preoperative area where informed consent was obtained. She was then brought to the OR where she was sedated and intubated by anesthesia. After a time out was performed, the patient was prepped and draped in a sterile fashion. The enmanuel in place in her prior neck incision was removed. I was then able to use a tonsil instrument as well as my finger to probe the region of abscess again, palpating up to the ramus of the mandible, medially, laterally and superiorly. Any further loculations were broken up. A small amt of purulence and serous fluid was expressed. After this was done, i then reprobed the intraoral incision, not really expressing any more fluid or palpating any further collections. At this point I placed two enmanuel drained in through her neck incision and sutured them into place using a 3-0 nylon suture. Once this was done, the patient was cleaned. The wound was covered with some gauze and tape, and she was turned back over to Anesthesia, where she was awoken and extubated, and taken to PACU in stable condition. There were no complications, and she tolerated the procedure well. /[id number]/MODL MTDD
--- NOTE | 2016-10-18 17:50 | POSTOPPROG ---
Post Op Note Date of Operation: 10/18/16 Surgeon: Juliana Cardona Anesthesiologist: tonia newsome md Anesthesia: GET(General Endotracheal) Pre-op Diagnosis: dental/facial abscess, s/p I&D Sunday Post-op Diagnosis: same Procedure: I&D, washout Findings: some purulence expressed, no reaccumulation or new loculations noted Inf/Abcess present in the surg proc area at time of surgery?: Yes Depth: Deep Incisional (Fascial) EBL: Minimal Drains: Meena
[2016-10-19] MEDS: CHLORHEXIDINE GLUCONATE 15 ML UDL PO SCH ×4 (08:10→21:02)
[2016-10-19] MEDS: IBUPROFEN 200 MG TAB PO PRN ×2 (08:11→21:02)
[2016-10-19] MEDS: ENOXAPARIN 40 MG/0.4 ML SYR SC SCH (08:11)
[2016-10-19] MEDS: ERTAPENEM 1 GM in NS 100 ML IV SCH (08:11)
--- NOTE | 2016-10-19 10:24 | PCMIDPN ---
Assessment/Plan: Assessment/Plan: * Facial abscess of odontogenic etiology status post incision and drainage x2: Cultures with growth of Streptococcus intermedius and Haemophilus parainfluenza consistent with oral nestor. Patient with significant clinical improvement since initial consultation. Facial, neck and chest erythema fully resolved. Still has significant area of induration over left mandibular region and associated trismus - likely to be slow to resolve. Will plan 2 weeks of IV ertapenem given severity and size of abscess. Place PICC line today. Risk and benefit of PICC line were discussed with patient. Have case management evaluate for outpatient IV antibiotics. 10/19/16 10:21 10/19/16 10:25 Subjective: Patient feels significantly improved with decreased facial pain. Continues to have trismus and is frustrated with clear liquid diet. Objective: Vital Signs Temp Pulse Resp BP Pulse Ox 36.6 C 71 16 114/71 96 10/19/16 07:25 10/19/16 07:25 10/19/16 07:25 10/19/16 07:25 10/19/16 07:25 Microbiology 10/16/16 15:00 Gram Stain - Final Neck - Eswab 10/16/16 15:00 Mycobacterial Smear (DIMA) - Final Neck - Eswab Mycobacterial Culture - Final 10/16/16 15:00 Gram Stain - Final Neck - Eswab 10/16/16 15:00 Mycobacterial Smear (DIMA) - Final Unspecified Mycobacterial Culture - Final Laboratory Results 10/17/16 04:29 10/17/16 04:29 10/18/16 10/19/16 10/20/16 05:59 05:59 05:59 Intake Total 1450 780 Output Total 2280 1605 Balance -830 -825 ESR 43 MM/HR (0-30) H 10/16/16 10:06 C-Reactive Protein 208.7 mg/L (<10.0) H 10/16/16 10:06 Ertapenem # for Abscess cultures with growth of Streptococcus intermedius and Haemophilus parainfluenza Blood cultures x2 no growth - Physical Exam General Appearance: alert, no apparent distress EENT: other (Left-sided facial erythema fully resolved; induration present over left cheek with Meena drain x2 with some purulent material draining; tender to palpation; trismus present) Respiratory: lungs clear, No respiratory distress Neck: other (Erythema over neck resolved) Cardiac/Chest: regular rate, rhythm, other (Erythema over chest resolved), No systolic murmur Abdomen: non-tender, No distended ICD10 Worksheet Patient Problems: Problems Problem Status Diagnosed Facial abscess Acute Facial cellulitis Acute
[2016-10-19] MEDS ORDERED: ALTEPLASE 2 MG VIAL IVP PRN (10:26)
--- NOTE | 2016-10-19 13:19 | HOSPPROG ---
Hospitalist Progress Note Assessment/Plan: 70-year-old woman admitted with large facial abscess stemming from a recent dental procedure. She underwent I&D by ENT and is feeling much improved. Appreciate ID input she is currently on Invanz daily, ENT will continue to follow for further need for I and D. Patient discussed with Dr. Jones of Infectious Disease. # facial abscess status post I&D. * Likely 2 weeks of IV Invanz * Follow closely for worsening status and need for further I and D. Appreciate ENT a follow-up * PICC line today # pain * This is controlled currently # disposition * Unclear given need for further intervention and evaluation in the hospital setting * Will need continued antibiotic therapy Subjective: Feeling much better today. Less pain and swelling. Slept well last night. Objective: Vital Signs Temp Pulse Resp BP Pulse Ox 36.8 C 78 16 117/78 93 10/19/16 11:11 10/19/16 11:11 10/19/16 11:11 10/19/16 11:11 10/19/16 11:11 Microbiology 10/16/16 15:00 Gram Stain - Final Neck - Eswab 10/16/16 15:00 Mycobacterial Smear (DIMA) - Final Neck - Eswab Mycobacterial Culture - Final 10/16/16 15:00 Gram Stain - Final Neck - Eswab 10/16/16 15:00 Mycobacterial Smear (DIMA) - Final Unspecified Mycobacterial Culture - Final Laboratory Results 10/17/16 04:29 10/17/16 04:29 10/18/16 10/19/16 10/20/16 05:59 05:59 05:59 Intake Total 1450 780 240 Output Total 2280 1605 Balance -830 -825 240 - Physical Exam Constitutional: no apparent distress, not in pain Eyes: PERRL, anicteric sclera Ears, Nose, Mouth, Throat: hearing normal, ears appear normal Cardiovascular: No JVD, No edema Respiratory: no respiratory distress, reduced air movement Gastrointestinal: No tenderness, No ascites Skin: warm, normal color Musculoskeletal: full muscle strength, normal joint ROM Neurologic: AAOx3 Psychiatric: interacting appropriately, not anxious ICD10 Worksheet Patient Problems: Problems Problem Status Diagnosed Facial abscess Acute Facial cellulitis Acute
--- NOTE | 2016-10-19 17:07 | IR ---
Imaging-Guided Peripherally Inserted Central Catheter History: Facial abscess.. Prophylactic Antibiotic: Cefazolin was not ordered and administered for antimicrobial prophylaxis be cause it was not medically necessary for this procedure. VTE Prophylaxis: There is not an order for VTE prophylaxis to be given within 24 hours after procedu re end time because it was not medically necessary for this procedure. Crosscutting Measure: Patient's current list of medications including all known prescriptions, over- the-counters, herbals, and vitamin/mineral/dietary supplements are reviewed. Medications' name, dosa ge, frequency, and route of administration are confirmed. Technique: Following informed consent, the right arm was prepped and draped in sterile fashion. 1% Xy locaine was used for local anesthetic. All elements of maximal sterile barrier technique including cap, mask, sterile gown, sterile gloves, large sterile sheet, hand hygiene, and 2% chlorhexidine for cutaneous antisepsis, followed. Ultrasound evaluation of potential access site was performed. After successfully identifying a patent vessel, ultrasound guidance was used to puncture the vein. A permanent recording was created for the patient's record. Ultrasound transducer was placed in sterile sleeve and used for real-time imaging guidance over steri le gel to enter the brachial vein. 0.018 measuring wire was passed centrally under fluoroscopic contr ol. A skin shahzad with scalpel blade was followed by removing the access needle. A 4 Tajik peel-away s anson was followed by a 4 Tajik single-lumen central catheter, trimmed to 39 cm length. . The tip o f the catheter was positioned centrally and the guidewire removed. A single fluoroscopic spot image w as obtained in inspiration. The hub of the catheter was fixed to the skin using a sterile StatLock ad hesive device, and a sterile dressing was applied. The catheter was irrigated. Findings: The tip of the central catheter terminates at the junction of the superior vena cava and th e right atrium. Fluoroscopy: 0.3 minutes, 1 images Impression: 4 Tajik single lumen peripherally inserted central catheter is ready to use.
[2016-10-19] MEDS: MELATONIN 3 MG TAB PO SCH (21:02)
[2016-10-20 07:22] VITALS: RESP 18
--- NOTE | 2016-10-20 08:31 | HOSPPROG ---
Hospitalist Progress Note Assessment/Plan: 70-year-old woman admitted with large facial abscess stemming from a recent dental procedure. She underwent I&D by ENT and is feeling much improved. Appreciate ID input she is currently on Invanz daily. # facial abscess status post I&D x 2 * Likely 2 weeks of IV Invanz * PICC in place * once drains are out, she can be discharged # pain * This is controlled currently # anemia * likely due to acute illness # disposition * hopefully home this weekend with IV antibiotics * I have given her a name of a primary care provider for follow-up care Subjective: Reena is feeling markedly better. Objective: Vital Signs Temp Pulse Resp BP Pulse Ox 36.8 C 70 18 110/79 94 10/20/16 07:21 10/20/16 07:21 10/20/16 07:21 10/20/16 07:21 10/20/16 07:21 Microbiology 10/16/16 15:00 Gram Stain - Final Neck - Eswab 10/16/16 15:00 Gram Stain - Final Neck - Eswab Laboratory Results 10/17/16 04:29 10/17/16 04:29 10/19/16 10/20/16 10/21/16 05:59 05:59 05:59 Intake Total 780 980 Output Total 1605 1600 Balance -825 -620 - Physical Exam Constitutional: no apparent distress, appears nourished, not in pain Eyes: PERRL Ears, Nose, Mouth, Throat: hearing normal Cardiovascular: regular rate and rhythym Respiratory: no respiratory distress Gastrointestinal: normoactive bowel sounds Skin: warm, other ( dressing in place on the left jaw area, draining is in place ) Musculoskeletal: full muscle strength Neurologic: AAOx3 Psychiatric: interacting appropriately, not anxious ICD10 Worksheet Patient Problems: Problems Problem Status Diagnosed Facial abscess Acute Facial cellulitis Acute
[2016-10-20] MEDS: ENOXAPARIN 40 MG/0.4 ML SYR SC SCH (08:42)
[2016-10-20] MEDS: CHLORHEXIDINE GLUCONATE 15 ML UDL PO SCH ×3 (08:46→20:54)
[2016-10-20] MEDS: ERTAPENEM 1 GM in NS 100 ML IV SCH (08:46)
[2016-10-20] MEDS: IBUPROFEN 200 MG TAB PO PRN ×2 (08:52→20:54)
--- NOTE | 2016-10-20 10:41 | PCMIDPN ---
Assessment/Plan: 1. Left submandibular facial abscess from odontogenic source: The patient would like to have the Meena removed prior to discharge; she is not comfortable going home today. Will await ear nose and throat recommendations, and continue monotherapy with ertapenem. Of note, I have asked the microbiology lab to ascertain whether the Streptococcus intermedius is resistant to clindamycin, as we are seeing this more often now. Plan for 2 weeks of IV therapy as outlined by Dr. Jones. ? discharge on Sunday. 10/20/16 10:40 Subjective: Afraid of going home with the Meena in place. Would like to stay through the weekend and ideally have the [place] removed prior to discharge. Still has trismus, but is tolerating clear liquids. No diarrhea on the antibiotics. Objective: Ertapenem 1 g IV daily day 5 Afebrile Vital Signs Temp Pulse Resp BP Pulse Ox 36.8 C 70 18 110/79 94 10/20/16 07:21 10/20/16 07:21 10/20/16 07:21 10/20/16 07:21 10/20/16 07:21 Microbiology 10/16/16 15:00 Gram Stain - Final Neck - Eswab 10/16/16 15:00 Gram Stain - Final Neck - Eswab Laboratory Results 10/17/16 04:29 10/17/16 04:29 10/19/16 10/20/16 10/21/16 05:59 05:59 05:59 Intake Total 780 980 Output Total 1605 1600 Balance -825 -620 ESR 43 MM/HR (0-30) H 10/16/16 10:06 C-Reactive Protein 208.7 mg/L (<10.0) H 10/16/16 10:06 Cultures with Haemophilus parainfluenza and Streptococcus intermedius - Physical Exam General Appearance: alert, no apparent distress EENT: other (Meena drain in place left submandibular area. Scant amount of purulence notable on the gauze. No erythema. Only able to open her mouth about 40 degrees. No obvious thrush.) Respiratory: lungs clear Extremities: other (PICC line right upper extremity looks fine) Skin: No rash ICD10 Worksheet Patient Problems: Problems Problem Status Diagnosed Facial abscess Acute Facial cellulitis Acute
--- NOTE | 2016-10-20 16:30 | SOAPPROG ---
SOAP Progress Note Assessment/Plan: Assessment: 70yo w odontogenic infections s/p 2 drainage procedures. Improving considerably. All drains out. Plan: - D/W Dr Cardona and agree that with drains out and improving, she should be able to go home once she can demonstrate appropriate self-care. - Recommend BID and PRN dressing changes, full diet, regular activities. - ABX per ID - Follow up with Dr. Cardona in 1 week. 10/20/16 16:27 Subjective: Feeling better. Drainage decreasing. Objective: Vital Signs Temp Pulse Resp BP Pulse Ox 36.7 C 79 18 112/79 93 10/20/16 15:43 10/20/16 15:43 10/20/16 15:43 10/20/16 15:43 10/20/16 15:43 Microbiology 10/16/16 15:00 Gram Stain - Final Neck - Eswab 10/16/16 15:00 Gram Stain - Final Neck - Eswab Laboratory Results 10/17/16 04:29 10/17/16 04:29 10/19/16 10/20/16 10/21/16 05:59 05:59 05:59 Intake Total 780 980 Output Total 1605 1600 Balance -825 -620 Physical Exam - Physical Exam General Appearance: alert, no apparent distress EENT: PERRL/EOMI, pharyngeal erythema (Mild. Suture and small opening at L soft palate. No pus expressed.), other (L cheek drain removed. Mild straw colored discharge. Mild to mod TTP. Min erythema and mild edema.) ICD10 Worksheet Patient Problems: Problems Problem Status Diagnosed Facial abscess Acute Facial cellulitis Acute
[2016-10-20] MEDS: MELATONIN 3 MG TAB PO SCH (20:54)
[2016-10-21] MEDS: ERTAPENEM 1 GM in NS 100 ML IV SCH (08:12)
[2016-10-21] MEDS: CHLORHEXIDINE GLUCONATE 15 ML UDL PO SCH (08:12)
[2016-10-21] MEDS: IBUPROFEN 200 MG TAB PO PRN (08:24)
[2016-10-21 08:35] VITALS: BP 109/69; PULSE 62; TEMP 97.4; O2SAT 92
--- NOTE | 2016-10-21 10:55 | PCMIDPN ---
Assessment/Plan: Assessment/Plan: 1. Left odontogenic infection with extension with crystal cutter and neck abscess: - s/p I & D . appreciate ENt -Cx in progress: Gram stain with GPC in chains, GNR,....cx with H. parainfluenza and Strep intermedius - Currently on invanz for broad coverage. -wbc improving.pain improved overall -blood cx ngtd -Pt updated of plan of care, follow up, side effects of therapy, etc. -f/u in office on 10/25/16 at 11am. -interagency form filled out. -care coordinated with hospitalist team and case management. -plan for at least two weeks therapy. tentative end date for: 11/06/16. meds invanz 1g daily- 10/16/16 Subjective: Afebrile. Feeling better overall. Has some trouble swallowing food espeically on her left side. denies pain on swallowing. Denies sob, abd pain or diarrhea. Occ cough. Less swelling. drains out as of yesterday. still with some oozing from previous drain site. Objective: Vital Signs Temp Pulse Resp BP Pulse Ox 36.3 C 62 18 109/69 92 10/21/16 08:00 10/21/16 08:00 10/21/16 08:00 10/21/16 08:00 10/21/16 08:00 Microbiology 10/16/16 15:00 Gram Stain - Final Neck - Eswab 10/16/16 15:00 Gram Stain - Final Neck - Eswab Laboratory Results 10/17/16 04:29 10/17/16 04:29 10/20/16 10/21/16 10/22/16 05:59 05:59 05:59 Intake Total 980 Output Total 1600 900 Balance -620 -900 ESR 43 MM/HR (0-30) H 10/16/16 10:06 C-Reactive Protein 208.7 mg/L (<10.0) H 10/16/16 10:06 - Physical Exam General Appearance: alert, no apparent distress Respiratory: lungs clear Cardiac/Chest: regular rate, rhythm, No systolic murmur Extremities: No swelling Abdomen: normal bowel sounds, non-tender, soft, No distended Skin: other (left cheeck and neck with rsidual swelling. less indurated compared to earlier this week. serosanguinous drainage from previous drain site. ), No erythema - Time Spent With Patient Time Spent with Patient: greater than 35 minutes Time Spent with Patient: Greater than 35 minutes spent on this patients care, greater than 50% of time spent counseling, educating, and coordinating care regarding the above mentioned plan. ICD10 Worksheet Patient Problems: Problems Problem Status Diagnosed Facial abscess Acute Facial cellulitis Acute
--- NOTE | 2016-10-21 10:57 | PDIAF ---
- Diagnosis Diagnosis: Odontogenic infection with emergency department technician and neck abscess. Code Status: Full Code - Medication Management Discharge Medications: Medications to Continue on Transfer NK [No Known Home Meds] 10/16/16 [Last Taken Unknown] Mcc Antibiotics: invanz 1g daily IV Mcc Antibiotic Stop Date: 11/06/16 Discharge Medications: Refer to the Discharge Home Medication list for PRN reason. PICC Care - Routine: Yes - Orders Wound Care Instructions: twice daily dressing changes - Labs/Radiology CBC Date: 10/23/16 (q mondays) CMP Date: 10/23/16 (q mondays) Call or Fax Lab and Imaging Results to: fax to Dr. Ford [phone] - Follow Up Care Current Providers and Referrals: NONE *PRIMARY CARE P,. [Primary Care Provider] - As per Instructions Juliana Cardona MD [Medical Doctor] - Alexa Ford MD [Medical Doctor] - 10/25/16 11:00 am (f/u with Dr. Ford ( Infectious diseases) on 10/25/16, at 11am. Check in time is at: 10:40. Thank you. )
--- NOTE | 2016-10-21 11:44 | HOSPPROG ---
Hospitalist Progress Note Assessment/Plan: 70-year-old woman admitted with large facial abscess stemming from a recent dental procedure. She underwent I&D by ENT and is feeling much improved. Appreciate ID input she is currently on Invanz daily. # facial abscess status post I&D x 2 * Likely 2 weeks of IV Invanz * PICC in place * Ertapenem # pain * This is controlled currently # anemia * likely due to acute illness # disposition * home today/appreciate Dr Ford Subjective: Reena is feeling well today/ was a bit nervous about going home. Has felt safe with the nursining staff. Objective: Vital Signs Temp Pulse Resp BP Pulse Ox 36.3 C 62 18 109/69 92 10/21/16 08:00 10/21/16 08:00 10/21/16 08:00 10/21/16 08:00 10/21/16 08:00 Microbiology 10/16/16 15:00 Gram Stain - Final Neck - Eswab 10/16/16 15:00 Gram Stain - Final Neck - Eswab Laboratory Results 10/17/16 04:29 10/17/16 04:29 10/20/16 10/21/16 10/22/16 05:59 05:59 05:59 Intake Total 980 Output Total 1600 900 Balance -620 -900 - Physical Exam Constitutional: no apparent distress, appears nourished, not in pain Eyes: PERRL Ears, Nose, Mouth, Throat: hearing normal Cardiovascular: regular rate and rhythym Respiratory: no respiratory distress Gastrointestinal: normoactive bowel sounds Skin: warm, other (left jaw incision without redness/ min drainage) Musculoskeletal: full muscle strength Neurologic: AAOx3 Psychiatric: interacting appropriately, not anxious, not encephalopathic ICD10 Worksheet Patient Problems: Problems Problem Status Diagnosed Facial abscess Acute Facial cellulitis Acute
[2016-10-21] MEDS: ENOXAPARIN 40 MG/0.4 ML SYR SC SCH (13:07)
--- NOTE | 2016-10-21 13:58 | GDS ---
[f rep st] DISCHARGE SUMMARY DISCHARGE DIAGNOSES: 1. Facial abscess, status post incision and drainage times 2. 2. Pain. 3. Anemia. CONSULTATIONS DURING HER STAY: 1. Dr. Juliana Cardona. 2. Dr. Luciano Jones. HISTORY: Briefly, the patient is a very sweet 70-year-old female without any significant past medica l history. She presented to the emergency room with left facial pain and swelling. She had a CT per formed that showed a 9 x 8.5 cm multiloculated abscess in the left neck area extending cephalad to th e skull base with epicenter around the left mandibular ramus. She went to the OR with Dr. Cardona an d had an I and D of the left neck abscess. She was seen and evaluated by the infectious disease team and treated with ertapenem. In addition during her stay, she had a 2nd I and D and washout of the l eft facial abscess. She has done very well. She will be discharged home. She will continue IV anti biotic therapy via PICC. She will come to [facility] for IV antibiotics. HOSPITAL COURSE PER PROBLEM: 1. Facial abscess, status post I and D x2. She will be on ertapenem. She will need 2 weeks of IV a ntibiotic therapy. 2. Pain. This is currently controlled on Tylenol. 3. Anemia due to the acute illness. PENDING LABS AND TESTS: None. CONDITION ON DISCHARGE: Stable. Blood pressure is 109/69, O2 sats on room air 92%, respiratory rate is 18, pulse is 62, temperature is 36.3 Celsius. MEDICATIONS AT DISCHARGE: Please see the EMR. DISCHARGE INSTRUCTIONS: 1. Continue the Peridex mouthwash for several weeks until she follows up with Dr. Cardona. 2. Stay on a soft diet. 3. If she develops any redness, swelling or worsening pain to her left jaw area, to return to the em ergency room. Greater than 30 minutes were spent discharging and coordinating care. Copy requested to: Isabel Laguerre DDS [facility] /[id number]/MODL
== END 2016-10-21 14:18 | disposition home or self-care (01) | DRG 580 ==
LOC: F3E 17:01
PROVIDERS: ADMIT Internal Medicine; ATTEND Internal Medicine
PROC: 0J940ZZ Drainage of Right Neck Subcutaneous Tissue and Fascia, Open Approach (ICD-10-PCS; principal; 2016-10-16 12:45)
PROC: 0C940ZZ Drainage of Buccal Mucosa, Open Approach (ICD-10-PCS; principal; 2016-10-16 12:45)
PROC: 0J940ZZ Drainage of Right Neck Subcutaneous Tissue and Fascia, Open Approach (ICD-10-PCS; 2016-10-18)
PROC: 0C940ZZ Drainage of Buccal Mucosa, Open Approach (ICD-10-PCS; 2016-10-18)
PROC: 02HV33Z Insertion of Infusion Device into Superior Vena Cava, Percutaneous Approach (ICD-10-PCS; 2016-10-19)
DX: L02.11 Cutaneous abscess of neck (principal); K12.2 Cellulitis and abscess of mouth; D64.9 Anemia, unspecified; R52 Pain, unspecified; Z88.0 Allergy status to penicillin
CPT/HCPCS: 82947-QW; 96365; 96366; C1751; J1335; J1650; J2250; J2704; J3010; J3370; Q9967